=== PATIENT | female | born 2000 | race Caucasian/White ===

== ENCOUNTER 2021-04-30 15:50 | Emergency (ER) | payer OTHER, SELFPAY ==
[2021-04-30 16:02] VITALS: BP 122/78; PULSE 109; RESP 16; TEMP 37; O2SAT 99
--- NOTE | 2021-04-30 16:40 | ED.SKABFB ---
HPI - Skin/Abscess/Foreign Bdy General Chief complaint: Skin/Abscess/Foreign Body Stated complaint: Blister on Chest Time Seen by Provider: 04/30/21 16:41 Source: patient, family, RN notes reviewed and old records reviewed Mode of arrival: ambulatory Limitations: no limitations History of Present Illness HPI narrative: 21 year old female who presents to [facility] with complaints of still having pain and redness from getting sunburned on her inner breasts which occurred one week ago. Patient states that she had blisters on the inner aspects of her bilateral breasts and they popped and tissue remains red with scabbing and the areas burn and itch and still are painful. Patient is very fair skinned and states that she applied sunscreen several times that day but got sunburned anywhere skin was exposed, noted peeling on her arms. Patient reports that he has been putting aloe lotion on her breast area and has taken Ibuprofen but remains uncomfortable.Cold sores noted to right upper lip area with scabbing. Related Data Home Medications Medication Instructions Recorded Confirmed citalopram 20 mg PO DAILY 04/30/21 04/30/21 Allergies Allergy/AdvReac Type Severity Reaction Status Date / Time No Known Allergies Allergy Verified 04/30/21 16:33 Review of Systems Review of Systems: CONSTITUTIONAL: Denies fever, chills, or sweats. EYES: Denies visual changes, redness, or discharge. ENT: Denies rhinorrhea, congestion, sore throat, or otalgia, cold sores to right upper lip area CARDIOVASCULAR: Denies chest pain, palpitations, or edema. RESPIRATORY: Denies cough or dyspnea. GASTROINTESTINAL: Denies abdominal pain, nausea, vomiting, or diarrhea. GENITOURINARY: Denies dysuria or hematuria. SKIN: excoriated areas on inner bilateral breast with some scabbing noted MUSCULOSKELETAL: Denies back pain, joint pain, or myalgia. NEUROLOGIC: Denies headache, numbness, or weakness. PSYCHIATRIC: Positive history of anxiety or depression. All systems reviewed & are unremarkable except as noted in HPI and below PMFSH Past Medical History Medical History (Updated 05/02/21 @ 20:18 by Mickie Soria NP) Anxiety and depression Asthma Surgical History Surgical History (Updated 05/02/21 @ 20:06 by Mickie Soria NP) History of tonsillectomy Family History Family History (Updated 05/02/21 @ 20:13 by Mickie Soria NP) Other No significant family history Social History Social History (Updated 05/02/21 @ 20:14 by Mickie Soria NP) Smoking status: Current every day smoker Tobacco type: cigarettes Alcohol intake: current Alcohol use details: social Substance use: never Living arrangements: with family Gender identity (if verbalized by the patient): Female Comments At time of signature, agree with nursing past medical, surgical, social and family history. There is no relevant family history pertinent to the presenting complaint Exam Narrative: GENERAL: Well-appearing, well-nourished, and in no acute distress. HEAD: Normocephalic, atraumatic. EYES: PERRLA and EOMI. ENT: Nares clear, no rhinorrhea or epistaxis. Mucous membranes moist.TM's normal with good light reflex, throat pink with no lesions or exudates, tonsils absent. NECK: Supple.no lymphadenopathy CHEST: Clear to auscultation. No respiratory distress.SAO2 99% on room air HEART: Regular rate and rhythm. No murmur heard. Normal peripheral pulses. ABDOMEN: Soft, nontender, nondistended, normal active bowel sounds. EXTREMITIES: Normal range of motion. No edema. SKIN: Warm, dry, red excoriated area noted to bilateral inner breast where sunburned and had blisters which popped, some redness to areas with scabbing, no drainage noted, sites are painful burning and itching as reported by patient. Also has cold sores noted to the right upper lip region. NEURO: No focal deficits. Alert and oriented x3. Course Vital Signs Vital signs: Vital Signs Temperature
== END 2021-04-30 17:02 | disposition home or self-care (01) ==
PROVIDERS: Emergency Provider Registered Nurse; PCP Physician Assistant
DX: L55.9 Sunburn, unspecified (principal); B00.1 Herpesviral vesicular dermatitis; F17.210 Nicotine dependence, cigarettes, uncomplicated; J45.909 Unspecified asthma, uncomplicated; F41.9 Anxiety disorder, unspecified; F32.9 Major depressive disorder, single episode, unspecified
CPT/HCPCS: 99213; G0463

== ENCOUNTER 2021-12-08 11:58 | Outpatient (RCR) | payer OTHER, SELFPAY ==
[2021-12-08 13:51] VITALS: BP 129/79; PULSE 111
== END 2022-03-08 23:59 | disposition home or self-care (01) ==
LOC: ANHOBOP 11:58
PROVIDERS: PCP Physician Assistant; Visit Provider Obstetrics & Gynecology
DX: O36.8190 Decreased fetal movements, unspecified trimester, not applicable or unspecified (principal); Z3A.00 Weeks of gestation of pregnancy not specified
CPT/HCPCS: 59025

== ENCOUNTER 2022-03-07 12:59 | Emergency (ER) | payer OTHER, SELFPAY ==
--- NOTE | ~2022-03-07 | US_ITS ---
EXAMINATION: US pelvic complete DATE: 03/07/2022 14:06 INDICATION: abd pain, 7 days post op, 7 days . TECHNIQUE: Multiple transabdominal (TV examination declined) sonographic images of the pelvis were ob tained. COMPARISON: None. FINDINGS: Uterus: 12.8 x 7.2 x 8.6 cm. Endometrial complex measures 25.3 cm. Heterogeneously echogenic material within the endometrial cavity, with suggestion of septate. Right Ovary: 3.1 x 2.0 x 2.5 cm. Vascular flow is present. No mass. Left Ovary: 3.0 x 1.6 x 2.4 cm. Vascular flow is present. No mass There is no free fluid in the pelvis. IMPRESSION: 1. Debris within the endometrial cavity, may reflect clot and/or retained products of conception. Reviewed, dictated and finalized at location K. IMPRESSION: 1. Debris within the endometrial cavity, may reflect clot and/or retained produ cts of conception.
[2022-03-07 13:04] VITALS: BP 117/89; PULSE 88; RESP 18; TEMP 36.6; O2SAT 100
--- NOTE | 2022-03-07 13:22 | ED.ABDPAIN ---
HPI - Abdominal Pain General Chief Complaint: Abdominal Pain Stated Complaint: ABD Pain after Childbirth Time Seen by Provider: 03/07/22 13:13 Source: RN notes reviewed History of Present Illness HPI narrative: Patient presents emergency department from home for left lower quadrant abdominal pain. Patient states that symptoms began approximately 30 minutes ago. The pain is located left lower quadrant does not radiate described as cramping in nature. Patient states that is associated with periodic nausea but denies any vomiting or diarrhea states that she had a vaginal delivery approximately 7 days ago at [facility] states there is no complications at that time states she still is having some mild vaginal bleeding. States she not taking pain medication for the symptoms today Related Data Home Medications Medication Instructions Recorded Confirmed citalopram 20 mg tablet 20 mg PO DAILY 04/30/21 04/30/21 Allergies Allergy/AdvReac Type Severity Reaction Status Date / Time No Known Allergies Allergy Verified 04/30/21 16:33 Review of Systems Review of Systems: Gen.: Denies fevers or chills ENT: Denies congestion Respiratory: Denies shortness of breath or cough CV: Denies chest pain or palpitations GI: See HPI 7 days post liver Musculoskeletal: Denies back pain or muscle pain Neuro: Denies numbness, tingling, weakness or focal weakness Skin: Denies rash Except as documented, all other systems reviewed and negative PMFSH Past Medical History Medical History Anxiety and depression Asthma Surgical History Surgical History (Updated 05/02/21 @ 20:06 by Mickie Soria NP) History of tonsillectomy Family History Family History (Updated 05/02/21 @ 20:13 by Mickie Soria NP) Other No significant family history Social History Social History Smoking status: Current every day smoker Tobacco type: cigarettes Alcohol intake: current Alcohol use details: social Substance use: never Gender identity (if verbalized by the patient): Female Exam Narrative: APPEARANCE: No acute distress, nontoxic, resting in bed HEENT: Normocephalic, atraumatic, OMM RESPIRATORY: No respiratory distress, clear to auscultation bilaterally with no rhonchi wheezing or rales CARDIOVASCULAR: RRR s murmur ABDOMINAL: Soft nondistended tender palpation left lower quadrant no tenderness left upper quadrant, right upper quadrant lower quadrant no rebound or guarding MUSCULOSKELETAl: Moves all extremities. No clubbing, cyanosis or edema. NEURO: Awake and alert. Following commands, speech normal, no focal deficits SKIN:: Warm, dry. Normal Color PSYCHIATRIC: Normal affect/mood Course Course Emergency Course: Called and discussed with [employer] Dr. Lipscomb on-call for Dr. Myers discussed patient's ultrasound results and presentation agrees with plan for discharge the patient to follow-up in the office Patient states that they are feeling much better at this time. States abdominal pain has resolved. Repeat abdominal exam shows the patient's abdomen to be soft and nontender. Discussed with patient results of workup and diagnosis. Discussed need for follow-up with primary care physician, reasons to return to the emergency department in proper use of medication. Patient understands and agrees to current treatment plan. Discussed with patient ultrasound results question a possible retained proximal conception versus blood clot in uterus and need for follow-up with [employer] patient understands will make an appointment Vital Signs Vital signs: Vital Signs Temperature 97.9 F 03/07/22 13:04 Pulse Rate 88 03/07/22 13:04 Respiratory Rate 18 03/07/22 13:04 Blood Pressure 117/89 03/07/22 13:04 Pulse Oximetry 100 03/07/22 13:04 Oxygen Delivery Room Air 03/07/22 13:04 Temperature 97.9 F
[2022-03-07 13:25] LABS: Appearance Urine Clear (Clear); Bilirubin Urine Negative (Negative); Blood Urine 2+ (Negative); Color Urine Yellow (Yellow); Glucose Urine UA Negative (Negative); Ketones Urine Negative (Negative); Leukocyte Esterase Ur 1+ LEU/UL (Negative); Nitrate Urine Negative (Negative); Protein Urine Trace mg/dL (Negative); Urobilinogen Urine 0.2 mg/dL (<2.0); pH Urine 6.5 (5.0-9.0)
--- NOTE | 2022-03-07 13:27 | PC.NURSE ---
Pt to US via wheelchair
[2022-03-07 13:28] LABS: Basophils Percent Auto 0.5 % (0.2-1.2); Eosinophils Absolute Auto 0.3 K/mm3 (0-0.3); Eosinophils Percent Auto 3.7 % (0-4.4); Hematocrit 39.1 % (37.0-47.0); Hemoglobin 12.5 g/dL (12.0-15.0); Immature Granulocyte Absolute 0.05 K/mm3 (0.00-0.031); Immature Granulocyte Percent A 0.6 % (0-0.5); Lymphocytes Absolute Auto 2.25 K/mm3 (0.9-3.2); Mean Corpuscular Hemoglobin 27.8 pg (26-34); Mean Corpuscular Volume 87.1 fl (80-100); Monocytes Absolute Auto 0.4 K/mm3 (0.1-0.6); Monocytes Percent Auto 4.7 % (2.6-8.5); Neutrophils Percent Auto 62.5 % (45.5-73.1); Platelet Count Result 293 k/mm3 (150-375); Red Blood Count 4.49 M/mm3 (4.2-5.4); Red Cell Distribution Width 13.2 % (11.5-14.5); White Blood Count 8.1 K/mm3 (4.5-10.0)
[2022-03-07 13:32] LABS: Add Urine Microscopic? YES; Mucus Urine Rare /lpf; Squamous Epithelial Cell Urine Few /hpf (Few); Transitional Epi Cells Urine Rare /hpf (None Seen)
[2022-03-07 13:39] LABS: Alanine Aminotransferase 37 U/L (6-35); Albumin Level 4.4 g/dL (3.5-5.1); Alkaline Phosphatase 151 U/L (38-126); Anion Gap 6 mmol/L (8-16); Aspartate Amino Transferase 34 U/L (14-36); Bilirubin,Total 0.2 mg/dL (0.2-1.3); Blood Urea Nitrogen 13 mg/dL (7-17); Carbon Dioxide 27 mmol/L (22-30); Chloride 105 mmol/L (98-107); Estimated CRCL calculation 99 ml/min; Estimated Glomerular Filt Rate > 60; Glucose 106 mg/dL (65-110); Lipase 41 U/L (23-300); Potassium 3.7 mmol/L (3.4-5.0); Sodium 138 mmol/L (137-145)
[2022-03-07] MEDS: SODIUM CHLORIDE 0.9% IV 1,000 ML 999 ML IV CONT (14:07)
[2022-03-07] MEDS: CEPHALEXIN 500 MG CAPSULE PO (15:51)
[2022-03-07 15:56] VITALS: BP 102/78; PULSE 77; RESP 16; O2SAT 98
== END 2022-03-07 15:57 | disposition home or self-care (01) ==
PROVIDERS: Emergency Medicine; Emergency Provider Emergency Medicine; PCP Physician Assistant
DX: N39.0 Urinary tract infection, site not specified (principal); R10.32 Left lower quadrant pain; F41.9 Anxiety disorder, unspecified; F32.9 Major depressive disorder, single episode, unspecified; J45.909 Unspecified asthma, uncomplicated
CPT/HCPCS: 36415; 76856; 80053; 81001; 83690; 85025; 87086; 96365; 99284; A9270; J0131; J7030

== ENCOUNTER 2023-10-14 10:47 | Emergency (ER) | payer OTHER, SELFPAY ==
[2023-10-14 10:54] VITALS: BP 131/83; PULSE 111; RESP 20; TEMP 36.8; O2SAT 100
--- NOTE | 2023-10-14 11:34 | ED.ABDPAIN ---
HPI - Abdominal Pain General Chief Complaint: Urogenital-Female Stated Complaint: UTI Time Seen by Provider: 10/14/23 11:05 Source: patient and RN notes reviewed Mode of arrival: ambulatory Limitations: no limitations History of Present Illness HPI narrative: Patient presents today complaining of intermittent abdominal pain x2 days that is not currently present. She vomited once 2 days ago, but none since then, and orange urine. Denies fever, diarrhea, constipation, or any additional symptoms. States she does have some spotting with her Depo-Provera shot. LMP was 1 week ago. Related Data Allergies Allergy/AdvReac Type Severity Reaction Status Date / Time No Known Allergies Allergy Verified 10/14/23 11:15 Review of Systems Review of Systems: CONSTITUTIONAL: Denies body aches, fever, chills, or sweats. EYES: Denies visual changes, redness, or discharge. ENT: Denies rhinorrhea, congestion, sore throat, or otalgia. CARDIOVASCULAR: Denies chest pain, palpitations, or edema. RESPIRATORY: Denies cough or dyspnea. GASTROINTESTINAL: + abdominal pain, diarrhea-resolved GENITOURINARY: Denies dysuria or hematuria. + orange urine SKIN: Denies rash, itching, or wounds. MUSCULOSKELETAL: Denies back pain, joint pain, or myalgia. NEUROLOGIC: Denies headache, numbness, tingling, or weakness. PSYCH: Denies depression or anxiety. [facility] Past Medical History Medical History Anxiety and depression Asthma Surgical History Surgical History History of tonsillectomy Family History Family History Other No significant family history Social History Social History Smoking status: Current every day smoker Tobacco type: cigarettes Alcohol intake: current Alcohol use details: social Substance use: never Living arrangements: with family Gender identity (if verbalized by the patient): Female Comments At time of signature, I have reviewed and agree with nursing past medical, surgical, social and family history unless otherwise noted. Please see nursing chart for further information. There is no relevant family history pertinent to the presenting complaint Exam Narrative: GENERAL: Well-appearing, well-nourished, and in no acute distress. HEAD: Normocephalic, atraumatic. EYES: EOMI. No redness or drainage. Conjunctivae normal. ENT: Mucous membranes pink and moist. NECK: Normal AROM. CHEST: No respiratory distress. Clear to auscultation. HEART: Regular rate and rhythm. No murmur appreciated. Normal peripheral pulses. ABDOMEN: Soft, nontender, nondistended, normal active bowel sounds. -CVAT MUSCULOSKELETAL: No bony tenderness. EXTREMITIES: Normal range of motion. No edema. SKIN: Warm, dry, no rash. Capillary refill normal. Normal skin turgor. NEURO: No focal deficits. Alert and oriented x3. Gait steady. PSYCH: Normal affect. No signs of depression or anxiety. Course Course Level of Care: Express Care Visit Vital Signs Vital signs: Vital Signs Temperature 98.2 F 10/14/23 10:54 Pulse Rate 111 H 10/14/23 10:54 Respiratory Rate 10/14/23 10:54 Blood Pressure 131/83 10/14/23 10:54 Pulse Oximetry 100 10/14/23 10:54 Oxygen Delivery Room Air 10/14/23 10:54 Temperature 98.2 F 10/14/23 10:54 Pulse Rate 111 H 10/14/23 10:54 Respiratory Rate 20 10/14/23 10:54 Blood Pressure 131/83 10/14/23 10:54 Pulse Oximetry 100 10/14/23 10:54 Oxygen Delivery Room Air 10/14/23 10:54 Reviewed MDM - Abdominal Pain MDM Narrative Medical decision making narrative: UA shows blood and ketones. Blood could be due to UTI or spotting from Depo, or from active UTI. Will treat with Bactrim and send urine for culture. Anticipatory guidance gi
== END 2023-10-14 11:45 | disposition home or self-care (01) ==
PROVIDERS: Emergency Provider Nurse Practitioner; PCP Physician Assistant
DX: R31.9 Hematuria, unspecified (principal); F17.210 Nicotine dependence, cigarettes, uncomplicated; J45.909 Unspecified asthma, uncomplicated
CPT/HCPCS: 81003; 81025; 87086; 99213; G0463

== ENCOUNTER 2023-11-03 16:59 | Observation (INO) | payer OTHER, SELFPAY ==
[2023-11-03] VITALS (12 sets, daily range): BP systolic 109–123; BP diastolic 71–86; PULSE 66–93; RESP 16–22; TEMP 36.4–37.3; O2SAT 98–100; BMI 29.2
--- NOTE | ~2023-11-03 | CT_ITS ---
EXAMINATION: CT abdomen pelvis w con DATE: 11/03/2023 20:12 INDICATION: RLQ, RUQ tenderness TECHNIQUE: Computed tomography (CT) of the abdomen and pelvis was performed with 100 mL Omnipaque-350 intravenous contrast. Automated exposure control and iterative reconstruction technique were employe d. The dose-length product was 319.66 mGy-cm. COMPARISON: None. FINDINGS: Lower thorax: Unremarkable Liver: Normal. Biliary/Gallbladder: Cholelithiasis, without inflammatory changes or. No bile duct dilation. Pancreas: No mass or duct dilation. Spleen: Normal. Adrenals:No mass. Kidneys: No suspicious mass, obstructing stone, or hydronephrosis. GI tract: Mild distal esophageal and gastric wall edema. No small or large bowel dilation. Small milli l feces sign involving the distal ileum. No wall edema or surrounding inflammatory change. Uniform donna wel wall enhancement. Normal appendix. Mesentery/Peritoneum: No ascites, mass, or free air. Prominent right lower quadrant lymph nodes, not pathologic by size criteria. Retroperitoneum: No mass. Pelvis: Pelvic organs are within normal limits. Soft Tissues: Soft tissues and body wall unremarkable. Bones: No acute osseous finding. IMPRESSION: Mild esophagitis/gastritis. Cholelithiasis, without CT findings of cholecystitis. Fecalization of the distal ileum, without signs of obstruction or inflammation. Correlate for clinica l findings of enteritis. Reviewed, dictated and finalized at location K. [facility] IMPRESSION: Mild esophagitis/gastritis. Cholelithiasis, without CT findings of cholecystitis. Fecalization of the distal ileum, without signs of obstruction or inflammation. Correlate for clinical findings of enteritis.
--- NOTE | ~2023-11-03 | US_ITS ---
EXAMINATION: US abdomen limited DATE: 11/04/2023 08:34 INDICATION: Right upper quadrant pain TECHNIQUE: Multiple grayscale and Doppler ultrasound images of the abdomen were obtained. COMPARISON: CT, 11/03/2023 FINDINGS: The head, body, and tail of the pancreas are normal. The liver is normal with normal echoge nicity and echotexture. No surface nodularity. Normal hepatopetal flow in the main portal vein. Stone s are present in the nondistended gallbladder. No pericholecystic fluid or gallbladder wall thickenin g are identified. The normal common bile duct measures 3 mm. There was no sonographic Rodriguez sign. IMPRESSION: 1. Cholelithiasis without additional findings of cholecystitis. Reviewed, dictated and finalized at location B. [facility]
[2023-11-03 18:48] LABS: Basophils Percent Auto 0.4 % (0.2-1.2); Eosinophils Absolute Auto 0.1 K/mm3 (0-0.3); Hematocrit 41.8 % (37.0-47.0); Hemoglobin 13.5 g/dL (12.0-15.0); Immature Granulocyte Absolute 0.01 K/mm3 (0.00-0.031); Immature Granulocyte Percent A 0.2 % (0-0.5); Lymphocytes Absolute Auto 1.76 K/mm3 (0.9-3.2); Lymphocytes Percent Auto 36.4 % (18.3-44.2); Mean Corpuscular HGB Conc 32.3 g/dl (32-36); Mean Corpuscular Volume 80.5 fl (80-100); Mean Platelet Volume 10.3 fl (7.4-10.4); Monocytes Absolute Auto 0.3 K/mm3 (0.1-0.6); Monocytes Percent Auto 5.6 % (2.6-8.5); Neutrophils Absolute Auto 2.7 K/mm3 (1.3-6.7); Neutrophils Percent Auto 56.4 % (45.5-73.1); Platelet Count Result 255 k/mm3 (150-375); Red Blood Count 5.19 M/mm3 (4.2-5.4); Red Cell Distribution Width 15.5 % (11.5-14.5); White Blood Count 4.8 K/mm3 (4.5-10.0)
--- NOTE | 2023-11-03 18:59 | ED.GENADULT ---
HPI - General Adult General Chief complaint: Abdominal Pain <JAMIR Clifford Last Filed: 11/04/23 02:21> Stated complaint: back pain <JAMIR Clifford Last Filed: 11/04/23 02:21> Time Seen by Provider: 11/03/23 18:26 <Peter Moraes PA-C - Last Filed: 11/04/23 02:21> Source: patient <JAMIR Clifford Last Filed: 11/04/23 02:21> Mode of arrival: ambulatory <JAMIR Clifford Last Filed: 11/04/23 02:21> Limitations: no limitations <JAMIR Clifford Last Filed: 11/04/23 02:21> History of Present Illness HPI narrative: This is a 23 year old female who presents to the ED with chief complaint of right lower abdominal and side pain beginning yesterday. Reports the pain is located in the right lower quadrant and radiates to the back at times. Reports that the pain caused her to feel nauseous but denies vomiting. She also reports she felt like she may pass out due to the pain. States it is hard to get in a comfortable position. Reports having 1 episode like this a couple of weeks ago that went away after several hours. Denies fevers, chills, problems with urination, problems with bowel movements, chest pain, shortness of breath, pelvic pain, vaginal symptoms. <JAMIR Clifford Last Filed: 11/04/23 02:21> Related Data Home medications: Home Medications Medication Instructions Recorded Confirmed No Home Medications 11/03/23 11/03/23 <JAMIR Clifford Last Filed: 11/04/23 02:21> Allergies/adverse reactions: Allergies Allergy/AdvReac Type Severity Reaction Status Date / Time No Known Allergies Allergy Verified 10/14/23 11:15 <JAMIR Clifford Last Filed: 11/04/23 02:21> Review of Systems Review of Systems: All systems as dictated in HPI <JAMIR Clifford Last Filed: 11/04/23 02:21> [facility] Past Medical History Medical History: Medical History (Updated 11/04/23 @ 03:11 by Leslie Guerra MD) Anxiety and depression Asthma Right upper quadrant abdominal pain <Peter Moraes PA-C - Last Filed: 11/04/23 02:21> Surgical History Surgical History: Surgical History History of tonsillectomy <Peter Moraes PA-C - Last Filed: 11/04/23 02:21> Family History Family History: Family History Other No significant family history <Peter Moraes PA-C - Last Filed: 11/04/23 02:21> Social History Social History: Social History Smoking status: Smoker, status unknown Alcohol intake: current Alcohol use details: social Substance use: current Substance use type: marijuana Do You Feel Safe in your Home?: Yes Lack of Transportation: No Lack of Food: Never True Current Housing: I Have Housing Concerned About Future Housing: No Difficulty Paying Gas/Electric Bills: No Difficulty Paying for Meds: No Currently Unemployed: No Education: High School Diploma/GED Difficulty w/ Childcare or Family Care: No Living arrangements: with family Gender identity (if verbalized by the patient): Female Spiritual care concerns: No <Peter Moraes PA-C - Last Filed: 11/04/23 02:21> Exam Narrative: GENERAL: Well-appearing, well-nourished, and in no acute distress. HEAD: Normocephalic, atraumatic. EYES: PERRLA and EOMI. ENT: Nares clear, no rhinorrhea or epistaxis. Mucous membranes moist. Oropharynx without tonsillar hypertrophy exudate or other lesions. NECK: Supple. No adenopathy or masses. CHEST: No respiratory distress. Clear to auscultation. No wheezes rales or rhonchi HEART: Regular rate and rhythm. No murmur heard. Normal peripheral pulses. ABDOMEN: Right lower quadrant tenderness present. Right upper quadrant tenderness as well. Abdomen is soft, nondistended, normal active bowel sounds.
[2023-11-03] MEDS: ONDANSETRON INJ 4 MG/2 ML VIAL IV PUSH (19:06)
[2023-11-03] MEDS: MORPHINE SULFATE (*CRX) 4 MG/ML INJ IV PUSH ×2 (19:06→21:38)
[2023-11-03 19:08] LABS: Albumin Level 4.9 g/dL (3.5-5.1); Alkaline Phosphatase 174 U/L (38-126); Anion Gap 8 mmol/L (8-16); Bilirubin,Total 2.1 mg/dL (0.2-1.3); Blood Urea Nitrogen 14 mg/dL (7-17); Calcium 10.1 mg/dL (8.4-10.2); Carbon Dioxide 25 mmol/L (22-30); Chloride 105 mmol/L (98-107); Estimated Glomerular Filt Rate > 60; Glucose 102 mg/dL (65-110); Lipase 79 U/L (23-300); Potassium 3.4 mmol/L (3.4-5.0); Sodium 138 mmol/L (137-145)
[2023-11-03 19:16] LABS: Appearance Urine Clear (Clear); Bacteria Urine 1+ /hpf; Bilirubin Urine 3+ (Negative); Blood Urine 3+ (Negative); Color Urine Dark Yellow (Yellow); Glucose Urine UA Negative (Negative); Ketones Urine Trace mg/dL (Negative); Leukocyte Esterase Ur Trace LEU/UL (Negative); Nitrate Urine Negative (Negative); Non Pathogenic Casts 0-2; Protein Urine Trace mg/dL (Negative); Specific Grav Ur 1.027 (1.001-1.035); Squamous Epithelial Cell Urine Many /hpf (Few); pH Urine 5.5 (5.0-9.0)
[2023-11-03 19:21] LABS: Add Urine Microscopic? YES
--- NOTE | 2023-11-03 19:38 | PC.NURSE ---
Report received from MELONIE Alvares. Assumed care of patient at this time.
--- NOTE | 2023-11-03 20:02 | PC.NURSE ---
Patient in CT at this time.
[2023-11-03 20:15] LABS: Alanine Aminotransferase 1419 U/L (6-35); Aspartate Amino Transferase 777 U/L (14-36)
[2023-11-03 20:55] LABS: Partial Thromboplastin Time 29.5 SECONDS (22.3-36.8)
[2023-11-03 21:01] LABS: Bilirubin Direct 0.2 mg/dL (0-0.3)
--- NOTE | 2023-11-03 21:23 | PM.IMHP ---
H&P: HPI History of Present Illness Date/Time: 11/03/23 21:23 Chief Complaint: RIGHT UPPER QUADRANT PAIN Narrative: THIS IS A 23-YEAR-OLD FEMALE WITH PAST MEDICAL HISTORY SIGNIFICANT FOR ASTHMA, ANXIETY AND DEPRESSION. PATIENT PRESENTS TO THE EMERGENCY ROOM DUE TO ONGOING RIGHT UPPER QUADRANT PAIN WITH RADIATION TO THE BACK, ACCOMPANIED BY NAUSEA BUT NO VOMITING, NO DIARRHEA, NO FEVERS, NO RIGORS, NO CHILLS, DOES NOT SEE A RELATIONSHIP WITH THE INTAKE OF MEALS. RATES HER PAIN AT 7/10 IN INTENSITY. PRELIMINARY WORKUP WAS SIGNIFICANT FOR AST 777 ALT 1419 ALK PHOS 173 TOTAL BILI 2.1 EXAMINATION: CT abdomen pelvis w con DATE: 11/03/2023 20:12 INDICATION: RLQ, RUQ tenderness TECHNIQUE: Computed tomography (CT) of the abdomen and pelvis was performed with 100 mL Omnipaque-350 intravenous contrast. Automated exposure control and iterative reconstruction technique were employed. The dose-length product was 319.66 mGy-cm. COMPARISON: None. FINDINGS: Lower thorax: Unremarkable Liver: Normal.? Biliary/Gallbladder: Cholelithiasis, without inflammatory changes or. No bile duct dilation. Pancreas: No mass or duct dilation. Spleen: Normal. Adrenals:No mass. Kidneys: No suspicious mass, obstructing stone, or hydronephrosis. GI tract: Mild distal esophageal and gastric wall edema. No small or large bowel dilation. Small bowel feces sign involving the distal ileum. No wall edema or surrounding inflammatory change. Uniform bowel wall enhancement. Normal appendix. Mesentery/Peritoneum: No ascites, mass, or free air. Prominent right lower quadrant lymph nodes, not pathologic by size criteria. Retroperitoneum: No mass. Pelvis: Pelvic organs are within normal limits. Soft Tissues: Soft tissues and body wall unremarkable. Bones:? No acute osseous finding. IMPRESSION: Mild esophagitis/gastritis. Cholelithiasis, without CT findings of cholecystitis. Fecalization of the distal ileum, without signs of obstruction or inflammation. Correlate for clinical findings of enteritis. Review of Systems Review of Systems: RIGHT UPPER QUADRANT PAIN Constitutional: Constitutional: Denies chills, Denies fever(s), Denies night sweats and Denies poor appetite Eyes: Eyes: Denies change in vision ENT: Denies dysphagia and Denies odynophagia Cardiovascular: Cardiovascular: Denies chest pain, Denies radiating jaw, neck or arm pain and Denies palpitations Respiratory: Respiratory: Denies cough and Denies dyspnea Gastrointestinal: Gastrointestinal: Reports abdominal pain ( RIGHT UPPER QUADRANT), Denies diarrhea, Denies loose stools, Reports nausea and Denies vomiting Genitourinary: Genitourinary: Denies dysuria Musculoskeletal: Musculoskeletal: Denies back pain Integumentary/Breasts: Skin/Breast: Denies rash Neurologic: Denies focal weakness and Denies Sensory deficit (Neuro) Psychiatric: Psychiatric: Reports no additional psychiatric complaints and Reports as per HPI Endocrine: Endocrine: Denies cold intolerance, Denies flushing, Denies heat intolerance, Denies polyphagia, Denies polydipsia and Denies palpitations Hematologic/Lymphatic: Hematologic/Lymphatic: Reports no additional hematologic/lymphatic complaints and Reports as per HPI Allergic/Immunologic: Allergic/Immunologic: Reports no additional allergic/immunologic complaints and Reports as per HPI PMFSH Past Medical History Medical History (Updated 11/04/23 @ 03:11 by Leslie Guerra MD) Anxiety and depression Asthma Right upper quadrant abdominal pain Surgical History Surgical History History of tonsillectomy Family History Family History Other No significant family history Social History Social History Smoking status: Smoker, status unknown Alcohol intake: current Alcohol use de
[2023-11-03] MEDS: SODIUM CHLORIDE 0.9% IV 1,000 ML 125 ML IV CONT (23:27)
[2023-11-04] VITALS (12 sets, daily range): BP systolic 101–144; BP diastolic 65–94; PULSE 76–121; RESP 12–26; TEMP 36.4–37.4; O2SAT 96–100
--- NOTE | 2023-11-04 07:18 | WPDGICN ---
Assessment and Plan Assessment and plan (1) Cholelithiasis: Code(s): K80.20 - Calculus of gallbladder without cholecystitis without obstruction Status: Acute Assessment and Plan: I told her that she will eventually need a cholecystectomy, hopefully laparoscopic. She stated that someone emergency room told her that she would need to go to [place] or [facility] for surgery. I told her that is unlikely to be the case, And surgery has been notified. (2) Transaminitis: Code(s): R74.01 - Elevation of levels of liver transaminase levels Status: Acute Assessment and Plan: choledocholithiasis likely. CT scan shows: Mild esophagitis/gastritis. Cholelithiasis, without CT findings of cholecystitis. Fecalization of the distal ileum, without signs of obstruction or inflammation. Correlate for clinical findings of enteritis. Is possible that She has passed a stone. Ultrasound is ordered. Depending on today's labs and studies she may need ERCP she has no prior history of liver disease nor family history of liver disease she drinks alcohol rarely. Plan Ultrasound has been ordered. Will recheck LFTs. If they remain elevated will consider ERCP later today. GI Consult Note Consult date/time: 11/04/23 07:18 HPI: Anum Lemus is a 23 year old female Was admitted last evening after presenting to emergency room with abdominal pain that he began on Saturday. The pain is primarily right upper quadrant but radiates to the back and is felt across the back. She had an episode like this about 2 weeks ago which lasted 24 hours and subsided on its own. She has never been known to have gallbladder disease or liver disease in the past nor has she had pancreatitis. On presentation to emergency room she was found have markedly elevated liver enzymes with AST 777 ALT 1419 alkaline phosphatase 174 and a bilirubin of 2.1. Ultrasound CT scan did reveal cholelithiasis. lipase was normal Review of Systems Review of Systems: All systems reviewed & are unremarkable except as noted in HPI and below PMFSH Past Medical History Medical History Anxiety and depression Asthma Right upper quadrant abdominal pain Surgical History Surgical History History of tonsillectomy Family History Family History Other No significant family history Social History Social History Smoking status: Smoker, status unknown Alcohol intake: current Alcohol use details: social Substance use: current Substance use type: marijuana Do You Feel Safe in your Home?: Yes Lack of Transportation: No Lack of Food: Never True Current Housing: I Have Housing Concerned About Future Housing: No Difficulty Paying Gas/Electric Bills: No Difficulty Paying for Meds: No Currently Unemployed: No Education: High School Diploma/GED Difficulty w/ Childcare or Family Care: No Living arrangements: with family Gender identity (if verbalized by the patient): Female Spiritual care concerns: No Meds Home Medications and Allergies Home Medications Medication Instructions Recorded Confirmed Type No Home Medications 11/03/23 11/03/23 History Allergies Allergy/AdvReac Type Severity Reaction Status Date / Time No Known Allergies Allergy Verified 10/14/23 11:15 Vital Signs Vital Signs - 24 hr 11/03/23 17:06 11/03/23 18:38 11/03/23 19:10 Temperature 36.5 C 37.0 C Pulse Rate 93 83 Respiratory Rate 16 18 Blood Pressure 119/75 123/86 Pulse Oximetry 100 100 100 Oxygen Delivery Room Air 11/03/23 19:15 11/03/23 19:30 11/03/23 19:48 Temperature Pulse Rate Respiratory Rate Blood Pressure Pulse Oximetry 98 100 100 Oxygen Delivery
[2023-11-04 08:32] LABS: Albumin Level 4.1 g/dL (3.5-5.1); Alkaline Phosphatase 141 U/L (38-126); Aspartate Amino Transferase 470 U/L (14-36); Bilirubin,Total 1.3 mg/dL (0.2-1.3)
[2023-11-04 09:03] LABS: Alanine Aminotransferase 977 U/L (6-35)
--- NOTE | 2023-11-04 09:45 | PM.CNGS ---
Assessment and Plan Assessment and plan (1) Cholelithiasis: Code(s): K80.20 - Calculus of gallbladder without cholecystitis without obstruction Status: Acute Assessment and Plan: Cholelithiasis noted on CT and ultrasound this morning. No inflammation suggestive of acute cholecystitis or biliary duct dilatation, but her LFTs were markedly elevated. Total bilirubin 2.1 on admission but down to normal today. Other LFTs are trending down. Her abdominal pain has improved. It is likely that she has passed a stone. She had a similar episode a few weeks ago as well that could also be related to her gallbladder. Discussed treatment options with the patient in detail. We would recommend proceeding with a laparoscopic cholecystectomy under general anesthesia by Dr. Sosa. Description of the procedure, risks, benefits, expected outcomes, and expected recovery were discussed with the patient in detail. We discussed the risks of bile leak and bile duct injury, liver/bowel injury, bleeding, and infection. Also discussed the possibility of having to convert to an open procedure if necessary. Patient understands and wishes to proceed with surgery. Will keep her NPO with IV fluids and add her onto the surgery schedule. (2) Transaminitis: Code(s): R74.01 - Elevation of levels of liver transaminase levels Status: Acute Assessment and Plan: LFTs trending down with normal bilirubin this morning. Likely secondary to a passed stone. Plan I have discussed the patient's case and plan of care with Dr. Sosa. History of Present Illness Consult details Consult date: 11/04/23 Reason for consult: other (Cholelithiasis) Requesting physician: Peter Moraes PA-C Narrative: This is a 23-year-old female who presented to the ER yesterday with complaints of right upper quadrant abdominal pain. She reports eating wings 2 days ago for lunch. A few hours after eating, she developed sudden onset of right upper quadrant abdominal pain. Her pain radiated to her mid back. She had associated nausea and forced herself to vomit. She was unable to find any comfortable positions and no alleviating factors. She presented to the ER yesterday for further evaluation. She reports a similar episode of abdominal pain a few weeks ago. She also reports dark tea-colored urine that started after having the abdominal pain a few weeks ago and got better when the pain resolved. She reports having dark colored urine again starting 2 days ago when her pain started. With her episode a few weeks ago, she presented to an urgent care and by the time she went there her pain was improving. They recommended she go to the ER if she has another episode. Workup in the ER showed elevated LFTs with a total bilirubin of 2.1, AST 777, ALT 1419, alk-phos 174. Lipase normal. White blood cell count normal. UA with 3+ blood, 3+ bilirubin, 11-20 WBC, trace leukocyte, 11-20 RBC, many squamous epithelial cells. CT scan of the abdomen and pelvis showed mild esophagitis/gastritis, cholelithiasis without CT evidence of cholecystitis, and fecalization of the distal ileum without signs of obstruction or inflammation. The patient was admitted to the hospitalist service. GI was consulted. Labs were repeated this morning and LFTs trending down with a normal total bilirubin. Right upper quadrant ultrasound ordered today that showed cholelithiasis without additional findings of cholecystitis. Normal common bile duct measuring 3 mm. Our service was consulted for the cholelithiasis. She is seen on the medical floor. She reports her abdominal pain has nearly resolved. No nausea this morning. No previous abdominal surgeries. Denies any history of liver disease or family history of liver disease. She reports only rare alcohol use. Review of Systems Review of Systems: All systems reviewed & are unremarkable except as noted in HPI and below PMFSH Past Medical History Medical History (Reviewed
--- NOTE | 2023-11-04 12:02 | PM.IMPN ---
Progress Note: A&P Assessment and Plan (1) Right upper quadrant abdominal pain: Code(s): R10.11 - Right upper quadrant pain Status: Acute Assessment and Plan: Ongoing for two weeks -continue pain management q 4 hrs -NPO for surgical procedure (2) Cholelithiasis: Qualifiers: Cholelithiasis location: gallbladder and bile duct Cholecystitis presence: with cholecystitis Cholecystitis acuity: acute Biliary obstruction: without biliary obstruction Qualified Code(s): K80.62 - Calculus of gallbladder and bile duct with acute cholecystitis without obstruction Code(s): K80.20 - Calculus of gallbladder without cholecystitis without obstruction Status: Acute Assessment and Plan: as evidenced by CT abdomen and pelvis, suspect choledocholithiasis -surgery consulted appreciate recommendation and plan Scheduled for ?Laparoscopic cholecystectomy -Gi consulted appreciate recommendation and plan may consider ERCP (3) Transaminitis: Code(s): R74.01 - Elevation of levels of liver transaminase levels Status: Acute Assessment and Plan: secondary to choledocholithiasis -GI is following -recheck LFTs may consider ERCP (4) Abnormal uterine bleeding: Code(s): N93.9 - Abnormal uterine and vaginal bleeding, unspecified Status: Acute Assessment and Plan: -patient reports ongoing abnormal vaginal bleeding > month. History of Depo-Provera IM for control -STI screen -monitor CBC, CMP -encourage patient follow-up outpatient with travel accommodation inspector, may need to discuss different control methods Plan Continue home medications: Patient denies any home medication use VTE Prophylaxis: Low risk/SCDs DIET: NPO/ advance as tolerated s/p: ?Laparoscopic cholecystectomy Anticipated hospital stay: >2 days Code Status: Full Subjective Date/time seen: 11/04/23 12:02 Interval history: HPI: pt was seen in the ED for right upper quadrant pain with radiation to her back. She reported nausea without vomiting. She denied any fever, chills, rigors or chest pain. Pt did state she had an episode of this pain about two weeks ago that eventually subsided, with GI rest. She also c/o ongoing abnormal menstrual cycle, she states she is currently on depo Provera using for control and relates she has noticed gi upset since starting medication. She denies any hx of drug use or excessive alcohol use. ED work-up revealed AST 77, ALT 1419, alk phos 172 and bili 2.1, CT abdomen reveals mild esophagitis/gastritis, cholelithiasis without CT finding of cholecystitis, fecalization of the distal ileum with signs of obstruction of inflammation, suspecting enteritis. 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 Plan to screen for mono, will also perform STI work-up due to report of abnormal bleeding, as well as continue NPO for surgical removal of gallbladder. Pt agrees to plan will continue to monitor. Review of Systems Review of Systems: All systems reviewed & are unremarkable except as noted in HPI and below Exam Narrative: PATIENT IS LAYING Const: General: cooperative, healthy appearing, comfortable, no acute distress, well developed, alert, awake, average body habitus and other ( WELL-APPEARING) Nutritional Appearance: average body habitus Orientation/consciousness: patient oriented x3 HENMT: Head: normal to inspection, normocephalic and atraumatic Ears: hearing grossly normal bilaterally Face/Nose/Sinus: normal facial exam Face and sinus: normal facial exam Mouth: Yes Normal oral and palatal mucosa present Eyes: General: appearance normal, both eyes and all related structures Pupils: Equal, round
[2023-11-04 12:47] LABS: Monoscreen Negative (Negative); Negative Monotest Control Negative (Negative); Positive Monotest Control Positive (Positive)
[2023-11-04 13:45] LABS: Trichomonas Vag PCR NOT DETECTED (NOT DETECTE)
[2023-11-04] MEDS: LACTATED RINGERS 1,000 ML 30 ML IV CONT ×2 (14:02→16:19)
--- NOTE | 2023-11-04 14:06 | WPDANESEPPF ---
Anes - Initial Pre Proc Eval Procedure: Operation Date: 11/04/23 14:30 Proposed Procedures p Laparoscopic Cholecystectomy - Yeimy Sosa MD Date/Time: 11/04/23 14:06 Surgeon: Leslie Guerra MD Pre Op Diagnosis: Hepatitis, Cholelithiasis Patient Data Age: 23 Gender: F Height: 1.52 m Weight: 68 kg Last Vital Signs Temp 37.1 C 11/04/23 13:56 Pulse 84 11/04/23 13:56 Resp 16 11/04/23 13:56 BP 126/78 11/04/23 13:56 Pulse Ox 100 11/04/23 13:56 O2 Del Method Room Air 11/04/23 13:56 Allergies Allergy/AdvReac Type Severity Reaction Status Date / Time No Known Allergies Allergy Verified 10/14/23 11:15 Home Medications Medication Instructions Recorded Confirmed Type No Home Medications 11/03/23 11/03/23 History Laboratory Tests 11/03/23 11/03/23 11/04/23 18:36 20:35 08:07 WBC 4.8 K/mm3 (4.5-10.0) RBC 5.19 M/mm3 (4.2-5.4) Hgb 13.5 g/dL (12.0-15.0) Hct 41.8 % (37.0-47.0) MCV 80.5 fl (80-100) MCH 26.0 pg (26-34) MCHC 32.3 g/dl (32-36) RDW 15.5 H % (11.5-14.5) Plt Count 255 k/mm3 (150-375) MPV 10.3 fl (7.4-10.4) Immature Gran % (Auto) 0.2 % (0-0.5) Neut % (Auto) 56.4 % (45.5-73.1) Lymph % (Auto) 36.4 % (18.3-44.2) [place] % (Auto) 5.6 % (2.6-8.5) Eos % (Auto) 1.0 % (0-4.4) Baso % (Auto) 0.4 % (0.2-1.2) Lymph # (Auto) 1.76 K/mm3 (0.9-3.2) Murray # (Auto) 0.3 K/mm3 (0.1-0.6) Eos # (Auto) 0.1 K/mm3 (0-0.3) Baso # (Auto) 0.0 K/mm3 (0.0-0.1) Abs Immat Gran (auto) 0.01 K/mm3 (0.00-0.031) Absolute Neuts (auto) 2.7 K/mm3 (1.3-6.7) Absolute Nucleated RBC 0.0 K/mm3 (0.0-0.012) Nucleated RBC % 0.0 % (0.0-0.2) PT 14.0 Seconds (11.1-14.7) INR 1.0 APTT 29.5 SECONDS (22.3-36.8) Sodium 138 mmol/L (137-145) Potassium 3.4 mmol/L (3.4-5.0) Chloride 105 mmol/L (98-107) Carbon Dioxide 25 mmol/L (22-30) Anion Gap 8 mmol/L (8-16) BUN 14 mg/dL (7-17) Creatinine 0.70 mg/dL (0.7-1.0) Estim Creat Clear Calc Not Reportable Estimated GFR > 60 (59 - ) Glucose 102 mg/dL (65-110) Calcium 10.1 mg/dL (8.4-10.2) Total Bilirubin 2.1 H mg/dL (0.2-1.3) Direct Bilirubin 0.2 mg/dL (0-0.3) GGT Pending AST 777 H U/L (14-36) ALT 1419 H U/L (6-35) Alkaline Phosphatase 174 H U/L (38-126) Total Protein 9.0 H g/dL (6.3-8.2) Albumin 4.9 g/dL (3.5-5.1) Lipase 79 U/L (23-300) Urine Color Dark yellow (Yellow) Urine Appearance Clear (Clear) Urine pH 5.5 (5.0-9.0) Ur Specific [place] 1.027 (1.001-1.035) Urine Protein Trace mg/dL (Negative) Urine Glucose (UA) Negative mg/dL (Negative) Urine Ketones Trace H mg/dL (Negative) Ur Blood (Man) 3+ H (Negative) Urine Nitrate Negative (Negative) Urine Bilirubin 3+ H (Negative) Urine Urobilinogen 1.0 mg/dL (<2.0) Leukocyte Esterase Rfl Trace H JAIMIE/UL (Negative) Urine RBC 11-20 H /hpf (0-2) Urine WBC 11-20 H /hpf Ur Squamous Epith Cells Many H /hpf (Few) Urine Bacteria 1+ H /hpf Urine Casts 0-2 C. trachomatis (PCR) Monoscreen Negative (Negative) N. gonorrhoeae (PCR) T. vaginalis (PCR) 11/04/23 11/04/23 11/04/23 08:08 12:25 12:27 WBC RBC Hgb Hct MCV MCH MCHC RDW Plt Count
--- NOTE | 2023-11-04 14:06 | WPDHPUPDATE1 ---
History and Physical Update Update Date/Time: 11/04/23 14:06 History and Physical has been reviewed, including an updated exam of the patient. There are NO changes in the patient's condition. Risks, benefits, and alternatives have been discussed and questions answered. Patient agrees to proceed with procedure.
[2023-11-04 14:09] LABS: Chlamydia trachomatis NOT DETECTED (NOT DETECTE); Neisseria gonorrhoeae PCR NOT DETECTED (NOT DETECTE)
[2023-11-04] MEDS: ceFAZolin 2 GM/D5W 50 ML 2 GM/50 ML BAG IVPB (14:47)
[2023-11-04] MEDS: BUPIVACAINE/EPINEPHRINE 0.5% 30 ML VIAL INFILTRATE (15:12)
--- NOTE | 2023-11-04 15:37 | W.PM.PROC2 ---
Procedure Note - Detailed Date of Procedure 11/04/23 Pre-op Diagnosis Acute cholecystitis, choledocholithiasis Post-op Diagnosis Same Procedure Performed Laparoscopic cholecystectomy Surgeon Yeimy Sosa MD Anesthesia General Indications 23 year old female presenting to the emergency department with right upper quadrant abdominal pain. Workup in the emergency department, including imaging, is significant for acute cholecystitis, choledocholithiasis. Findings Cholecystitis with cholelithiasis Description of Procedure The patient was taken to the operating room placed in the supine position. After adequate induction of general anesthesia, the patient was prepped and draped in normal sterile fashion. A time-out was then performed to verify the patient's identity as well as the procedure being performed. I then made a 5 mm incision in the infraumbilical region. Through this, a Veress needle was placed into the peritoneal cavity and CO2 gas was then insufflated. After adequate pneumoperitoneum was achieved, the Veress needle was removed and a 5 mm optiview trocar was placed through this incision under direct visualization. I then placed the laparoscope through this trocar site and under direct visualization placed a further 12 mm subxiphoid port as well as 2 additional 5 mm ports in the right upper abdomen. The gallbladder was then identified and was noted to be moderately inflamed, distended, and full of gallstones. I was able to place a grasper at the dome of the gallbladder and this was retracted anterior and cephalad up over the liver. A 2nd retractor was then placed at the infundibulum and retracted laterally, this allowed visualization of the triangle of Calot. I then was able to visualize the cystic duct in its entirety from its proximal insertion into the gallbladder, to its distal junction with the common hepatic/common bile duct junction. At this point, I carefully skeletonized the proximal cystic duct with the [place] dissector. I then clipped and transected the proximal cystic duct. Next I visualized the cystic artery. Again the artery was skeletonized, clipped, and transected. I then used the Bovie cautery to take down the peritoneal attachments of the gallbladder off the liver bed. This was somewhat difficult given the amount of inflammation in the posterior space. Once the gallbladder specimen was completely detached, an endo-pouch was placed through the 12 mm port site. I then placed the gallbladder specimen into the Endo pouch and removed the endo-pouch from the 12 mm port site. The specimen will now be sent to pathology for further review. I then copiously irrigated the right upper quadrant. Hemostasis was noted in the liver bed, the clips were noted to be in good position on both the cystic duct stump and the cystic artery stump. No other pathology was noted in the right upper quadrant. I then moved the laparoscope to the subxiphoid port. No iatrogenic injury or other pathology was noted in the lower abdomen. I then closed the 12 mm trocar site under direct visualization using the Hair cone and 0 Vicryl suture. At this point, the abdomen was desufflated and all ports removed. All port sites were then closed with 4.O Monocryl subcuticular sutures. Dermabond was placed on each incision. The patient tolerated the procedure well, was extubated in the operating room postoperative and will be transferred to the recovery room in stable condition Estimated Blood Loss 5 Drains No Packing No Pathology Yes Complications No immediate complications Condition Stable Disposition PACU [facility] Billing Surgery - Charge Forward: Surgery Billing
[2023-11-04] MEDS: fentaNYL CITRATE INJ (*CRX) 100 MCG/2 ML VIAL 25 MCG IV PUSH ×6 (16:00→16:30)
[2023-11-04] MEDS: MORPHINE SULFATE (*CRX) 4 MG/ML INJ IV PUSH ×2 (17:35→21:49)
[2023-11-04] MEDS: HYDROcodone/acetaminophen (*CRX) 5-325 MG TABLET 1 TAB PO (18:02)
[2023-11-04] MEDS: KETOROLAC 30 MG/ML VIAL (*BKC) IM (20:28)
[2023-11-05 00:42] VITALS: BP 107/78; PULSE 74; RESP 14; TEMP 36.7; O2SAT 99
[2023-11-05 04:58] VITALS: BP 104/73; PULSE 96; RESP 16; TEMP 36.4; O2SAT 95
[2023-11-05] MEDS: MORPHINE SULFATE (*CRX) 4 MG/ML INJ IV PUSH (06:31)
[2023-11-05 07:10] LABS: Basophils Percent Auto 0.5 % (0.2-1.2); Eosinophils Percent Auto 0.6 % (0-4.4); Hematocrit 36.2 % (37.0-47.0); Hemoglobin 11.6 g/dL (12.0-15.0); Immature Granulocyte Absolute 0.02 K/mm3 (0.00-0.031); Immature Granulocyte Percent A 0.3 % (0-0.5); Lymphocytes Absolute Auto 2.13 K/mm3 (0.9-3.2); Lymphocytes Percent Auto 32.2 % (18.3-44.2); Mean Corpuscular Hemoglobin 26.4 pg (26-34); Mean Corpuscular Volume 82.5 fl (80-100); Mean Platelet Volume 10.3 fl (7.4-10.4); Monocytes Absolute Auto 0.4 K/mm3 (0.1-0.6); Monocytes Percent Auto 5.4 % (2.6-8.5); Platelet Count Result 191 k/mm3 (150-375); Red Blood Count 4.39 M/mm3 (4.2-5.4); Red Cell Distribution Width 14.9 % (11.5-14.5); White Blood Count 6.6 K/mm3 (4.5-10.0)
[2023-11-05 07:25] LABS: Alanine Aminotransferase 591 U/L (6-35); Albumin Level 3.8 g/dL (3.5-5.1); Alkaline Phosphatase 118 U/L (38-126); Anion Gap 9 mmol/L (8-16); Aspartate Amino Transferase 144 U/L (14-36); Bilirubin,Total 0.9 mg/dL (0.2-1.3); Blood Urea Nitrogen 9 mg/dL (7-17); Calcium 8.8 mg/dL (8.4-10.2); Carbon Dioxide 22 mmol/L (22-30); Chloride 106 mmol/L (98-107); Estimated CRCL calculation 108 ml/min; Estimated Glomerular Filt Rate > 60; Glucose 85 mg/dL (65-110); Potassium 3.5 mmol/L (3.4-5.0); Sodium 137 mmol/L (137-145)
[2023-11-05 08:00] VITALS: BP 116/78; PULSE 83; RESP 18; TEMP 37.1; O2SAT 100
[2023-11-05] MEDS: HYDROcodone/acetaminophen (*CRX) 5-325 MG TABLET 1 TAB PO ×2 (08:55→16:10)
--- NOTE | 2023-11-05 10:34 | WPDANESPN ---
Anes - Prog Note Post-Op Date/Time: 11/05/23 10:34 Cardiovascular status: normal Respiratory status: normal Airway patency: baseline Mental status: baseline Post-Op hydration status: normal Vital Signs: Last Vital Signs Temp 37.1 C 11/05/23 08:00 Pulse 83 11/05/23 08:00 Resp 18 11/05/23 08:00 BP 116/78 11/05/23 08:00 Pulse Ox 100 11/05/23 08:00 O2 Del Method Room Air 11/05/23 09:02 O2 Flow Rate 8 11/04/23 16:05 Pain Score (VAS): 10/26 I/O: Intake & Output 11/04/23 11/05/23 11/05/23 23:59 07:59 15:59 Intake Total 360 200 Output Total 700 Balance 360 -500 Laboratory Tests 11/05/23 06:22 11/05/23 06:22 11/04/23 11/04/23 11/04/23 08:07 12:25 12:27 WBC RBC Hgb Hct MCV MCH MCHC RDW Plt Count MPV Immature Gran % (Auto) Neut % (Auto) Lymph % (Auto) [place] % (Auto) Eos % (Auto) Baso % (Auto) Lymph # (Auto) [place] # (Auto) Eos # (Auto) Baso # (Auto) Abs Immat Gran (auto) Absolute Neuts (auto) Absolute Nucleated RBC Nucleated RBC % Sodium Potassium Chloride Carbon Dioxide Anion Gap BUN Creatinine Estim Creat Clear Calc Estimated GFR Glucose Calcium Total Bilirubin AST ALT Alkaline Phosphatase Total Protein Albumin C. trachomatis (PCR) Not detected Monoscreen Negative N. gonorrhoeae (PCR) Not detected T. vaginalis (PCR) Not detected 11/05/23 06:22 WBC 6.6 RBC 4.39 Hgb 11.6 L Hct 36.2 L MCV 82.5 MCH 26.4 MCHC 32.0 RDW 14.9 H Plt Count 191 MPV 10.3 Immature Gran % (Auto) 0.3 Neut % (Auto) 61.0 Lymph % (Auto) 32.2 [place] % (Auto) 5.4 Eos % (Auto) 0.6 Baso % (Auto) 0.5 Lymph # (Auto) 2.13 [place] # (Auto) 0.4 Eos # (Auto) 0.0 Baso # (Auto) 0.0 Abs Immat Gran (auto) 0.02 Absolute Neuts (auto) 4.0 Absolute Nucleated RBC 0.0 Nucleated RBC % 0.0 Sodium 137 Potassium 3.5 Chloride 106 Carbon Dioxide 22 Anion Gap 9 BUN 9 D Creatinine 0.60 L Estim Creat Clear Calc 108 Estimated GFR > 60 Glucose 85 Calcium 8.8 Total Bilirubin 0.9 AST 144 H ALT 591 H Alkaline Phosphatase 118 Total Protein 7.0 Albumin 3.8 C. trachomatis (PCR) Monoscreen N. gonorrhoeae (PCR) T. vaginalis (PCR) Microbiology 11/03/23 18:36 Urine Clean Catch Urine Culture - Final Post-procedural complaints: none Patient Feedback: Patient satisfied with anesthetic care.
[2023-11-05 12:14] VITALS: BP 112/79; PULSE 75; RESP 18; TEMP 36.7; O2SAT 100
--- NOTE | 2023-11-05 12:49 | PM.PNGS ---
Progress Note: A&P Assessment and Plan (1) Cholecystitis: Code(s): K81.9 - Cholecystitis, unspecified Status: Acute Assessment and Plan: Doing well on POD#1. OK to discharge from surgical standpoint. F/u with Dr. Sosa in 2 weeks. Subjective Subjective Date/Time Seen: 11/05/23 12:49 Interval history: Tolerating diet. Pain controlled. Mostly just pain at the upper incision with activity. Exam GI: Inspection: non-distended and incision (intact with glue) GI Palp: Yes Soft to palpation, Yes Tenderness to palpation present (GI) (incisional) and No Guarding due to palpation present (GI) Auscultation: normal bowel sounds Objective Data Vital Signs Vital Signs: Vital Signs - 24 hr 11/04/23 13:56 11/04/23 15:35 11/04/23 15:50 Temperature 37.1 C 36.4 C 36.7 C Pulse Rate 84 121 H 98 Respiratory Rate 16 26 H 18 Blood Pressure 126/78 140/89 138/88 Pulse Oximetry 100 100 100 Oxygen Delivery Room Air Simple Face Mask Simple Face Mask Oxygen Flow Rate 8 8 11/04/23 16:05 11/04/23 16:35 11/04/23 16:50 Temperature 37.2 C 37.4 C Pulse Rate 91 100 99 Respiratory Rate 12 12 13 Blood Pressure 136/78 144/94 H 138/86 Pulse Oximetry 100 96 99 Oxygen Delivery Simple Face Mask Room Air Room Air Oxygen Flow Rate 8 11/04/23 17:30 11/04/23 17:45 11/04/23 18:15 Temperature 36.9 C 36.8 C 37.1 C Pulse Rate 95 95 91 Respiratory Rate 16 14 18 Blood Pressure 110/65 115/67 120/81 Pulse Oximetry 97 97 99 Oxygen Delivery Oxygen Flow Rate 11/04/23 19:39 11/04/23 20:00 11/05/23 00:42 Temperature 36.5 C 36.7 C Pulse Rate 85 74 Respiratory Rate 16 14 Blood Pressure 119/77 107/78 Pulse Oximetry 100 100 99 Oxygen Delivery Room Air Oxygen Flow Rate 11/05/23 04:58 11/05/23 08:00 11/05/23 09:02 Temperature 36.4 C 37.1 C Pulse Rate 96 83 Respiratory Rate 16 18 Blood Pressure 104/73 116/78 Pulse Oximetry 95 100 Oxygen Delivery Room Air Oxygen Flow Rate 11/05/23 12:14 Temperature 36.7 C Pulse Rate 75 Respiratory Rate 18 Blood Pressure 112/79 Pulse Oximetry 100 Oxygen Delivery Oxygen Flow Rate Intake/Output Intake/Output: Intake & Output 11/02/23 11/03/23 11/04/23 11/05/23 23:59 23:59 23:59 23:59 Intake Total 360 200 Output Total 700 Balance 360 -500 Meds/Results Medications: Active Medications Generic Name Dose Route Start Last Admin Trade Name Freq PRN Reason Stop Dose Admin Hydrocodone Bitart/Acetaminophen 1 tab 11/04/23 17:08 11/05/23 08:55 Hydrocodone/Acetaminophen (*Crx) 5-325 Mg Tablet PO 1 tab Q4H PRN Administration Pain Rated 4-6 Sodium Chloride 1,000 mls @ 125 mls/hr 11/03/23 21:45 11/05/23 07:39 Normal Saline Iv IV CONT Not Given .Q8H JAYSON Morphine Sulfate 4 mg 11/03/23 21:45 11/05/23 06:31 Morphine Sulfate (*Crx) 4 Mg/Ml Inj IV PUSH 4 mg Q4H PRN Administration Pain Rated 7-10 Ondansetron HCl 4 mg 11/03/23 21:45 Ondansetron Inj 4 Mg/2 Ml Vial IV PUSH Q4H PRN Nausea Radiology Results: ITS Impressions Abdomen/Pelvis CT 11/03/23 20:13 IMPRESSION: Mild esophagitis/gastritis. Cholelithiasis, without CT findings of cholecystitis. Fecalization of the distal ileum, without signs of obstruction or inflammation. Correlate for clinical findings of enteritis. Abdomen Ultrasound 11/04/23 09:11 IMPRESSION: 1. Cholelithiasis without additional findings of cholecystitis. Labs Labs: Laboratory Results - last 24 hr 11/04/23 11/04/23 11/05/23 12:25 12:27 06:22 WBC 6.6 RBC 4.39 Hgb 11.6 L Hct 36.2 L MCV 82.5 MCH 26.4 MCHC 32.0 RDW 14.9 H Plt Count 191 MPV 10.3 Immature Gran % (Auto) 0.3 Neut % (Auto) 61.0 Lymph % (Auto) 32.2 [place] % (Auto) 5.4 Eos % (Auto) 0.6 Baso % (Auto) 0.5 Lymph # (Auto) 2.13 [place] # (Auto) 0.4 Eos # (Auto) 0.0 Baso # (Auto) 0.0 Abs Immat Gran (
--- NOTE | 2023-11-05 14:39 | PM.DS ---
DS: Admitting Diagnosis Discharge Date 11/05/2023 Admitting Diagnosis Cholelithiasis DS: Discharge Diagnosis Discharge Diagnosis (1) Cholecystitis: Code(s): K81.9 - Cholecystitis, unspecified Status: Acute (2) Abnormal uterine bleeding: Code(s): N93.9 - Abnormal uterine and vaginal bleeding, unspecified Status: Acute (3) Right upper quadrant abdominal pain: Code(s): R10.11 - Right upper quadrant pain Status: Acute (4) Cholelithiasis: Qualifiers: Biliary obstruction: without biliary obstruction Cholecystitis acuity: acute Cholecystitis presence: with cholecystitis Cholelithiasis location: gallbladder and bile duct Qualified Code(s): K80.62 - Calculus of gallbladder and bile duct with acute cholecystitis without obstruction Code(s): K80.20 - Calculus of gallbladder without cholecystitis without obstruction Status: Acute (5) Transaminitis: Code(s): R74.01 - Elevation of levels of liver transaminase levels Status: Acute DS: Summary Hospital Course Reason for hospitalization: pt was seen in the ED for right upper quadrant pain with radiation to her back. She reported nausea without vomiting. She denied any fever, chills, rigors or chest pain. Hospital Course: ?Pt did state she had an episode of this pain about two weeks ago that eventually subsided, with GI rest. She also c/o ongoing abnormal menstrual cycle, she states she is currently on depo Provera using for control and relates she has noticed gi upset since starting medication. She denies any hx of drug use or excessive alcohol use. ED work-up revealed?AST 77, ALT 1419, alk phos 172 and bili 2.1, CT abdomen reveals mild esophagitis/gastritis, cholelithiasis without CT finding of cholecystitis, fecalization? of the distal ileum with signs of obstruction of inflammation, suspecting enteritis. ?Interval Hx: 11/04/2023:? 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 Plan to screen for mono, will also perform STI work-up due to report of abnormal bleeding, as well as continue NPO for surgical removal of gallbladder. Pt agrees to plan will continue to monitor. Status at Discharge Functional status at discharge: independent ambulation Overall status at discharge: patient is back to baseline Time Spent with Patient Time attestation: Total time spent providing and/or coordinating discharge services: Time spent: Less than 30 minutes Exam Const: General: cooperative, healthy appearing, comfortable, no acute distress, well developed, alert, awake, average body habitus and other ( WELL-APPEARING) Nutritional Appearance: average body habitus Orientation/consciousness: patient oriented x3 HENMT: Head: normal to inspection, normocephalic and atraumatic Ears: hearing grossly normal bilaterally Face/Nose/Sinus: normal facial exam Face and sinus: normal facial exam Mouth: Yes Normal oral and palatal mucosa present Eyes: General: appearance normal, both eyes and all related structures Pupils: Equal, round and reactive pupils present EOM: EOMs intact bilaterally Neck: Neck: normal visual inspection, full ROM, no lymphadenopathy and no JVD Thyroid: thyroid normal Lymphatic: no lymphadenopathy noted Chest: Chest palpation & inspection: normal inspection of the chest Resp: Effort & Inspection: normal respiratory effort and able to speak in complete sentences Auscultation: clear to auscultation bilaterally Cardio: Jugular venous distension: no JVD Rate: regular rate Rhythm: regular rhythm Heart sounds: S1 normal heart sound present and S2 normal heart sound present GI: Inspection: normal to inspection, non-distended and incision (intact with glue) Auscultation: bobby
[2023-11-05 16:09] VITALS: BP 122/86; PULSE 89; RESP 16; TEMP 36.9; O2SAT 100
[2023-11-07 14:30] LABS: GGT 220 U/L (3-40)
== END 2023-11-05 16:30 | disposition home or self-care (01) ==
LOC: ANHED 19:15 → ANH3MEDSUR 22:19
PROVIDERS: Emergency Medicine; Internal Medicine Gastroenterology; Nurse Practitioner; Surgery; Admitting Provider Internal Medicine; Emergency Provider Physician Assistant; PCP Physician Assistant; Visit Provider Internal Medicine
PROC: 0FT44ZZ Resection of Gallbladder, Percutaneous Endoscopic Approach (ICD-10-PCS; CPT 47562; principal; 2023-11-04 14:30)
DX: K80.10 Calculus of gallbladder with chronic cholecystitis without obstruction (principal); R74.01 Elevation of levels of liver transaminase levels; N93.9 Abnormal uterine and vaginal bleeding, unspecified; F12.90 Cannabis use, unspecified, uncomplicated
CPT/HCPCS: 47562; 36415; 74177; 76705; 80053; 80076; 81001; 81025; 82248; 82977; 83690; 85025; 85610; 85730; 86308; 87086; 87491; 87591; 87661; 88304; 96374; 96375; 96376; 99285; A9270; G0378; J0330; J0690; J1100; J1885; J2250; J2270; J2405; J2704; J3010; J7030; J7120; Q9967

== ENCOUNTER 2024-12-11 11:45 | Emergency (ER) | payer OTHER, SELFPAY ==
--- NOTE | ~2024-12-11 | XR_ITS ---
EXAMINATION: XR toe 1st LT min 2V DATE: 12/11/2024 12:15 INDICATION: Left great toe injury. TECHNIQUE: 3 views of left great toe were obtained. COMPARISON: None. FINDINGS: Alignment is normal. No fracture. Joint spaces are normal. IMPRESSION: 1. No fracture. Reviewed, dictated and finalized at location A. IMPRESSION: 1. No fracture.
--- NOTE | 2024-12-11 11:51 | ED_ITS ---
HPI - Extremity Injury (Lower) General Chief Complaint: Extremity Injury, Lower Stated Complaint: left foot pain,big toe injury Time Seen by Provider: 12/11/24 12:43 Source: patient and RN notes reviewed Mode of arrival: ambulatory Limitations: no limitations History of Present Illness HPI Narrative: 24-year-old female presents with concern for injury of the 1st left toe. She reports her toe was injured by the couch last night. She reports pain with weight-bearing. Reports injury to the toenail. MD complaint: foot injury Related Data Home Medications ?Medication ?Instructions ?Recorded ?Confirmed ?Last Taken ?Type No Home Medications 11/19/23 11/19/23 Unknown History Allergies Allergy/AdvReac Type Severity Reaction Status Date / Time No Known Allergies Allergy Verified 12/11/24 11:51 Review of Systems Review of Systems: CONSTITUTIONAL: Denies malaise, chills, sweats, or fever. SKIN: Denies rash or itching, open skin, laceration, abrasion, redness, warmth, swelling. MUSCULOSKELETAL: Reports pain of the left 1st toe NEUROLOGIC: Denies numbness, weakness All systems reviewed & are unremarkable except as noted in HPI and below PMFSH Past Medical History Medical History (Updated 12/11/24 @ 12:51 by Jaimie Clemons NP) Right upper quadrant abdominal pain Anxiety and depression Asthma Surgical History Surgical History (Updated 11/19/23 @ 13:59 by Jessica Gonsalez CMA) History of laparoscopic cholecystectomy 11/04/[address] Sosa History of tonsillectomy Family History Family History Other No significant family history Social History Social History Smoking status: Smoker, status unknown Alcohol intake: current Alcohol use details: social Substance use: current Substance use type: marijuana Do You Feel Safe in your Home?: Yes Lack of Transportation: No Lack of Food: Never True Current Housing: I Have Housing Concerned About Future Housing: No Difficulty Paying Gas/Electric Bills: No Difficulty Paying for Meds: No Currently Unemployed: No Education: High School Diploma/GED Difficulty w/ Childcare or Family Care: No Living arrangements: with family Gender identity (if verbalized by the patient): Female Spiritual care concerns: No Comments At time of signature, agree with nursing past medical, surgical, social and family history. There is no relevant family history pertinent to the presenting complaint Exam Narrative: GENERAL: Well-appearing, well-nourished, and in no acute distress. HEAD: Normocephalic, atraumatic. EYES: PERRLA, conjunctivae clear NECK: Supple. CHEST: Speaks in full sentences. No respiratory distress. HEART: Regular rate and rhythm. Normal and equal peripheral pulses. EXTREMITIES: 1st digit of the left foot has grossly normal sensation, limited normal range of motion. My edema and ecchymosis. Normal sensation with sensitiv ity to light touch and pain. General digit point tenderness. No skin tenting, no devitalized tissue or atrophy, no trophic changes, no obvious deformity, alignment normal, nearby joints and structures intact. Distal pulses palpable and equal bilaterally, skin warm, dry, pink. Capillary refill less than 3 seconds. SKIN: Warm, dry, no rash. Partial Toenail avulsion noted to the 1st digit of the left foot, nail matrix completely dislodged from the base of the toenail as well as the lateral edge of the nail bed. The medial edge of the nail bed is still intact NEURO: Alert and oriented x3. PSYCH: Normal mood and affect Course Course Emergency Course: I discussed treatment with patient which would be numbing the toe and removing the toenail. I explained the benefits of this and the cons of not doing it. Patient does not want to do the procedure and she would like it to ?follow-up on its own?. Anticipatory guidance given. Patient agrees to follow-up as directed and is aware of reasons to seek care at the emergency department. Portions of this record may have been created with voice recognition software Level of Care: Express Care Visit Vital Signs Vital signs: Reviewed. MDM - Extremity Injury (Lower) MDM Narrative Medical decision making narrative: Patients injury and pain is consistent with musculoskeletal etiology. No signs of neurological or vascular compromise on exam. Compartments and tissues are soft without signs of compartment syndrome. Pain is felt appropriate for further evaluation on an outpatient basis. Critical Care Time Critical Care Time Critical Care Time: No Discharge Plan Discharge Clinical Impression: Avulsed toenail Patient Disposition: Home, Self-Care Condition: Stable Instructions: Nail Avulsion (ED) Additional Instructions: Soak your foot in warm soapy water several times a day. Wear orthopedic shoe for pain relief. Alternate ibuprofen and Tylenol for pain, keep your toe covered with a clean bandage. Follow-up with your primary care doctor for further evaluation. If you have any urgent concerns please go to the emergency room. Patient Language: Malawian Prescriptions: No Action No Home Medications Follow-up/Referrals: PHYSICIAN,CLIENT SUCCESS SPECIALIST [Primary Care Provider] -
[2024-12-11 11:59] VITALS: BP 119/77; PULSE 99; RESP 19; TEMP 37.6; O2SAT 100
== END 2024-12-11 13:10 | disposition home or self-care (01) ==
PROVIDERS: Emergency Provider Nurse Practitioner
DX: S91.202A Unspecified open wound of left great toe with damage to nail, initial encounter (principal); X58.XXXA Exposure to other specified factors, initial encounter; J45.909 Unspecified asthma, uncomplicated
CPT/HCPCS: 73660; 99213; G0463